=== PATIENT | female | born 1980 | race African-American/Black ===

== ENCOUNTER 2019-03-25 08:44 | Day surgery (SDC) | payer OTHER ==
[~2019-03-25] VITALS: Ht 170.2 cm; Wt 82.9 kg
[2019-03-25] MEDS: LR 1,000 ML IV ONE ×2 (06:00→09:34)
[~2019-03-25 08:44] MED LIST: LIDOCAINE 1% MDV 20ML VIAL SQ PRN
[2019-03-25 09:10] LABS: HEMATOCRIT 37.4 % (36.0-47.0); HEMOGLOBIN 11.3 g/dl (12.0-15.5); MEAN CORPUSCULAR HEMOGLOBIN 23.1 pg (27.0-33.0); MEAN CORPUSCULAR HGB CONC 30.2 g/dl (32.0-36.5); MEAN CORPUSCULAR VOLUME 76.3 fl (80.0-96.0); PLATELET COUNT, AUTOMATED 439 10^3/uL (150-450); WHITE BLOOD COUNT 9.9 10^3/uL (4.0-10.0)
[2019-03-25 09:47] LABS: HCG, SERUM QUALITATIVE NEGATIVE (NEGATIVE)
[2019-03-25] MEDS ORDERED: IODINE STRONG SOLN 15 ML BTL As Ordered ONE (11:30)
[2019-03-25] MEDS ORDERED: LIDOCAINE W/EPINEPHRINE 1% 20ML VIAL As Ordered ONE (11:35)
[2019-03-25] MEDS ORDERED: KETOROLAC 60 MG/2 ML VIAL (J1885) As Ordered ONE ×2 (11:40→11:41)
[2019-03-25] MEDS ORDERED: LIDOCAINE 2% INJ 100 MG/5 ML SDV (FOR ANES.) As Ordered ONE ×2 (11:40→11:41)
[2019-03-25] MEDS ORDERED: PROPOFOL 200 MG/20 ML VIAL As Ordered ONE (11:40)
[2019-03-25] MEDS ORDERED: fentaNYL 100 MCG/2 ML INJECTION (J3010) As Ordered ONE (11:40)
[2019-03-25] MEDS ORDERED: ONDANSETRON 4MG/2ML VIAL (J2405) As Ordered ONE (11:40)
[2019-03-25] MEDS ORDERED: MIDAZOLAM INJ 2 MG/2 ML VIAL (J2250) As Ordered ONE (11:40)
[2019-03-25 12:35] VITALS: BP 122/70
[2019-03-25] MEDS ORDERED: ONDANSETRON 4MG/2ML VIAL (J2405) IV PRN (12:45)
[2019-03-25] MEDS ORDERED: KETOROLAC 30 MG/ML VIAL (J1885) IV PRN (12:45)
[2019-03-25] MEDS ORDERED: LR 1,000 ML IV SCH (12:45)
[2019-03-25] MEDS ORDERED: PERCOCET 5MG/325MG TAB PO PRN (12:45)
--- NOTE | 2019-03-27 13:06 | RO ---
DATE OF PROCEDURE: 03/25/2019 PREPROCEDURE DIAGNOSIS: Cervical dysplasia. POSTPROCEDURE DIAGNOSIS: Cervical dysplasia. PROCEDURE: Loop electrosurgical excision. SURGEON: Dr. Coombs ASSISTANTS: None. ANESTHESIA: MAC. FLUIDS: 500 mL of lactated Ringers. URINE OUTPUT: 50 mL. ESTIMATED BLOOD LOSS: 5 mL. COMPLICATIONS: None. ANTIBIOTICS: None indicated. DESCRIPTION OF PROCEDURE: The risks, benefits, indications and alternatives of the procedure were reviewed with the patient and informed consent was obtained. The patient was taken to the operating room where local IV sedation was obtained without difficulty. The patient was then placed in the lithotomy position using Bahman stirrups. The patient was then prepped and draped in the usual sterile fashion. The bladder was drained with an in and out catheter. A surgical time out was then performed and the patient's identity and the planned procedure were verified with the operative team. A sterile speculum was then placed into the vagina and the cervix was visualized. A paracervical block was then performed using approximately 10 mL of 1% Lidocaine with epinephrine. Lugol's solution was then copiously applied to the cervix, which highlighted a lesion throughout the entire transformation zone of the cervix. The LEEP device was then set to 60-60 blend and activated. The Loop electrocautery wire was then passed across the external cervical os. Four total passes were performed to obtain adequate tissue samples of ectocervix and endocervix. All four samples were then sent to pathology for review. Superficial electrocoagulation of the cervical stroma was then performed. Excellent hemostasis was achieved. Monsel's solution was then copiously applied to the cervix. Inspection again revealed hemostasis. All instruments were then removed from the patient's vagina. At the completion of the case, the sponge, instrument and needle counts were correct times two. The patient tolerated the procedure well and was taken to the recovery room in stable condition. GRAY
== END 2019-03-25 12:50 | disposition home or self-care (01) ==
LOC: M SDC 08:44
PROVIDERS: ATTEND Obstetrics & Gynecology
DX: N87.0 Mild cervical dysplasia (principal); Z86.711 Personal history of pulmonary embolism; F17.290 Nicotine dependence, other tobacco product, uncomplicated
CPT/HCPCS: 36415; 57522; 84703; 85027; 88307; J1885; J2250; J2405; J3010